=== PATIENT | female | born 1965 | race Two or more races ===

== ENCOUNTER 2016-10-01 01:04 | Day surgery (SDC) | payer OTHER ==
[~2016-10-01] VITALS: Ht 160 cm; Wt 111.1 kg
[2016-10-01] VITALS (11 sets, daily range): BP systolic 103–139; BP diastolic 60–81
[~2016-10-01 01:04] MED LIST: ACET1TAB34 PO; ALPR0.5T6 PO; ALPR1TAB6 PO; CHOL2000 PO; CIPR500T86 PO; DIAZ5TAB4 PO; FLAV100T PO; FURO-81 PO; HYDR-3014 PO; LACTATED RINGERS 1,000 ML IV SCH; LACTATED RINGERS 1,000 ML ONE; LEVAQUIN 100 ML IV ONE; MAGN400T7 PO; POTA20TA14 PO; TRAM50TA PO; TYLENOL NO 3
[2016-10-01] MEDS ORDERED: LACTATED RINGERS 1,000 ML ONE ×2 (05:01→08:00)
[2016-10-01] MEDS ORDERED: LEVAQUIN 100 ML IV ONE ×2 (05:02→07:00)
[2016-10-01 06:42] LABS: BASOPHIL # 0.1 10^3/uL (0.0-0.1); BASOPHIL % 0.5 % (0.0-0.2); EOSINOPHIL # 0.2 10^3/uL (0.0-0.2); EOSINOPHIL % 1.6 % (0.0-5.0); HEMATOCRIT 40.3 % (36.0-46.0); HEMOGLOBIN 12.7 g/dL (12.0-15.0); LYMPHOCYTES # 1.7 10^3/uL (1.0-4.8); LYMPHOCYTES % 18.2 % (24.0-44.0); MEAN CELL HGB 24.6 pg (26-34); MEAN CELL HGB CONCENTRATION 31.5 g/dL (33-37); MEAN CORP VOLUME 78.1 fL (78-100); MEAN PLATELET VOLUME 11.3 fL (7.8-11.0); MONOCYTES # 0.6 10^3/uL (0.3-0.8); MONOCYTES % 5.9 % (5.0-12.0); NEUTROPHILS % 73.5 % (41.0-85.0); RED BLOOD CELL 5.16 10^6/uL (4.00-5.20); RED CELL DISTRIBUTION WIDTH 15.4 % (11.5-14.5); WHITE BLOOD CELL 9.5 10^3/uL (4.5-11.0)
[2016-10-01 06:54] LABS: ANION GAP 16.7; CALCIUM 9.1 mg/dL (8.4-10.5); CARBON DIOXIDE 22.3 mmol/L (20.0-32); CREATININE SERUM 1.26 mg/dL (0.59-1.40); GLUCOSE 105 mg/dL (70-110)
[2016-10-01 06:58] LABS: PARTIAL THROMBOPLASTIN TIME 26.4 SEC (24.67-30.72); PROTHROMBIN PROTIME 10.5 SEC (9.8-11.9)
[2016-10-01] MEDS ORDERED: LACTATED RINGERS 1,000 ML IV SCH ×2 (07:00→08:30)
[2016-10-01] MEDS ORDERED: SODIUM CHLORIDE IR ONE ×2 (07:24)
[2016-10-01] MEDS ORDERED: CIPR500T86 PO (08:25)
[2016-10-01] MEDS ORDERED: NORCO 7.5MG PO PRN (08:30)
[2016-10-01] MEDS ORDERED: SUBLIMAZE ONE (08:33)
[2016-10-01] MEDS ORDERED: SUBLIMAZE IV STA (08:35)
[2016-10-01] MEDS ORDERED: XYLOCAINE ONE (08:47)
[2016-10-01] MEDS ORDERED: DIPRIVAN IV ONE (08:48)
[2016-10-01] MEDS ORDERED: TORADOL ONE (08:48)
[2016-10-01] MEDS ORDERED: LACTATED RINGERS 1,000 ML IV ONE (09:00)
--- NOTE | 2016-10-01 10:01 | OPH ---
DATE OF SURGERY: 10/01/2016 PREOPERATIVE DIAGNOSIS: Right hydronephrosis secondary to a severe distal ____ stricture. FINAL DIAGNOSIS: Right hydronephrosis secondary to a severe distal ____ stricture. PROCEDURES: Cystoscopy, removal of right ureteral stent and replacement with insertion of a new 6-Belizean indwelling ureteral stent. DESCRIPTION OF PROCEDURE: The patient was brought to the cystoscopy room and was put in supine position on the cystoscopy table. After the patient was given a satisfactory and adequate general anesthesia, the patient was placed in the lithotomy position. The genitalia was then prepped and draped aseptically in the usual manner. First, a 22-Belizean cystoscope was inserted per urethra up to the bladder. With the use of the right angle lens, the bladder was visualized and the bladder was congested and the right ____ stent was easily noted, coming from the right ureteral orifice. This was removed and then a guidewire was inserted through it and a new 6-Belizean indwelling ureteral stent was then reinserted through the guidewire up to the right renal pelvis. After this was done, the guidewire was removed and the tip of the ureteral stent was also noted in the bladder area. Bladder again was emptied with fluid. Instrument was removed. The patient was awakened, was transferred to the recovery room in stable condition. Aldo Alvares MD DR: TREMAINE/augie JOB# [id number]
--- NOTE | 2016-10-01 11:29 | DIREP ---
PROCEDURE:XRAY FLUOROSCOPY COMPARISON:None. INDICATIONS:CYSTO, STENT REMOVAL AND REINSERTION; 22.89 mGy; fluoroscopy time 48 seconds TECHNIQUE:Fluoroscopic assistance right ureteral stent removal and reinsertion. FINDINGS:4 images to take right ureteral stent. No contrast. CONCLUSION:Fluoroscopic assistance right ureteral stent manipulation. Dictated by: Jaxon Mccabe M.D. on 10/01/2016 at 11:18 AM
== END 2016-10-01 09:36 | disposition home or self-care (01) ==
LOC: SURG 01:04
PROVIDERS: ATTEND Urology
DX: N13.1 Hydronephrosis with ureteral stricture, not elsewhere classified (principal); Z46.6 Encounter for fitting and adjustment of urinary device; E66.01 Morbid (severe) obesity due to excess calories; Z68.41 Body mass index [BMI] 40.0-44.9, adult; M19.90 Unspecified osteoarthritis, unspecified site; F32.9 Major depressive disorder, single episode, unspecified; Z85.41 Personal history of malignant neoplasm of cervix uteri
CPT/HCPCS: 36415; 52332; 76000; 80048; 85025; 85610; 85730; J1885; J1956; J3010; J3490; J7030; J7120 ×2; C1769; C2617

== ENCOUNTER → 2017-02-11 | Day surgery (SDC) | payer OTHER ==
[2017-02-10 16:35] VITALS: BP 141/70
[2017-02-10 17:30] LABS: BASOPHIL % 0.6 % (0.0-0.2); EOSINOPHIL # 0.1 10^3/uL (0.0-0.2); EOSINOPHIL % 1.9 % (0.0-5.0); HEMOGLOBIN 11.6 g/dL (12.0-15.0); LYMPHOCYTES # 1.6 10^3/uL (1.0-4.8); LYMPHOCYTES % 23.4 % (24.0-44.0); MEAN CELL HGB 25.1 pg (26-34); MEAN CELL HGB CONCENTRATION 31.9 g/dL (33-37); MEAN CORP VOLUME 78.8 fL (78-100); MEAN PLATELET VOLUME 11.3 fL (7.8-11.0); MONOCYTES # 0.4 10^3/uL (0.3-0.8); MONOCYTES % 6.2 % (5.0-12.0); NEUTROPHIL # 4.6 10^3/uL (1.8-7.7); NEUTROPHILS % 67.5 % (41.0-85.0); RED CELL DISTRIBUTION WIDTH 15.9 % (11.5-14.5); WHITE BLOOD CELL 6.8 10^3/uL (4.5-11.0)
[~2017-02-11] VITALS: Ht 160 cm; Wt 113.9 kg
[2017-02-11] VITALS (11 sets, daily range): BP systolic 99–132; BP diastolic 65–87
[~2017-02-11] MED LIST changes: +DECADRON ONE; +DEMEROL IV PRN; +DILAUDID IV PRN; +DIPRIVAN IV ONE; +NEOSTIGMINE ONE; +NORCO 7.5MG PO PRN; +PHENERGAN IV PRN; +QUELICIN ONE; +SODIUM CHLORIDE IR ONE; +SUBLIMAZE IV PRN; +SUBLIMAZE ONE; +TORADOL ONE; +VERSED ONE; +XYLOCAINE ONE; +ZEMURON IV ONE; +ZOFRAN IV PRN; +ZOFRAN ONE
--- NOTE | 2017-02-11 09:17 | DIREP ---
PROCEDURE:XRAY FLUOROSCOPY COMPARISON:[facility], CR, XRAY FLUOROSCOPY, 10/01/2016, 06:05 AM. INDICATIONS:stent removal and insertion of new stents TECHNIQUE:Real time fluoroscopy of was utilized by the clinician. Fluoroscopy time: 74 seconds FINDINGS: Fluoroscopy was utilized to evaluate the abdomen. For spot fluoroscopic images were submitted. Fine detail is precluded due to fluoroscopic nature of the exam. There is a right ureteral stent present on all images Please refer to the intra-operative note for additional details. CONCLUSION:Please refer to the intraoperative note for details. Dictated by: Jada Cerrato M.D. on 02/11/2017 at 08:10 AM Read in [place]
--- NOTE | 2017-02-11 11:13 | OPH ---
DATE OF SURGERY: 02/11/2017 PREOPERATIVE DIAGNOSIS: Right hydronephrosis due to a distal ureteral stricture. FINAL DIAGNOSIS: Right hydronephrosis due to a distal ureteral stricture. PROCEDURES: Cystoscopy, removal of right ureteral stent with insertion of a new 7-South Sudanese double-J ureteral stent. DESCRIPTION OF PROCEDURE: The patient was brought to the cystoscopy room and was put in supine position on the cystoscopy table. After the patient was given a satisfactory and adequate endotracheal general anesthesia, the patient was placed in the lithotomy position. The genitalia was then prepped and draped aseptically in the usual manner. First, a 22-South Sudanese cystoscope was inserted per urethra up to the bladder. With the use of the right angle lens, the bladder was visualized. There was no tumor, no calculi, no ulcerations seen. The right ureteral stent was then removed and replaced with a Glidewire. After that, a double J 7-South Sudanese ureteral stent was reinserted through the Glidewire all the way up to the kidney. After this was done, the Glidewire was removed. The bladder was emptied of fluid and the procedure was terminated. Instrument was then removed. The patient was then awakened, was transferred to the recovery room in stable condition. Aldo Alvares MD DR: TREMAINE/augie JOB# [id number]
== END | disposition home or self-care (01) | DRG 694 ==
LOC: SDC 00:35
PROVIDERS: ATTEND Urology
DX: N13.1 Hydronephrosis with ureteral stricture, not elsewhere classified (principal); K21.9 Gastro-esophageal reflux disease without esophagitis; F32.9 Major depressive disorder, single episode, unspecified; M19.90 Unspecified osteoarthritis, unspecified site; E66.01 Morbid (severe) obesity due to excess calories; Z98.890 Other specified postprocedural states; Z90.49 Acquired absence of other specified parts of digestive tract; Z85.41 Personal history of malignant neoplasm of cervix uteri; Z68.41 Body mass index [BMI] 40.0-44.9, adult
CPT/HCPCS: 36415; 52352; 76000; 82565; 84520; 85025; J0330; J1100; J1885; J1956; J2250; J2405; J3010; J3490 ×3; J7030 ×2; J7120; C1769; C2617; J2710

== ENCOUNTER 2017-03-18 00:12 | Day surgery (SDC) | payer OTHER ==
[~2017-03-18] VITALS: Ht 160 cm; Wt 113.9 kg
[2017-03-18] VITALS (11 sets, daily range): BP systolic 110–169; BP diastolic 69–92
[~2017-03-18 00:12] MED LIST changes: -DECADRON ONE; -DEMEROL IV PRN; -DILAUDID IV PRN; -DIPRIVAN IV ONE; -LACTATED RINGERS 1,000 ML IV SCH; -LACTATED RINGERS 1,000 ML ONE; -LEVAQUIN 100 ML IV ONE; -NEOSTIGMINE ONE; -NORCO 7.5MG PO PRN; -PHENERGAN IV PRN; -QUELICIN ONE; -SODIUM CHLORIDE IR ONE; -SUBLIMAZE IV PRN; -SUBLIMAZE ONE; -TORADOL ONE; -VERSED ONE; -XYLOCAINE ONE; -ZEMURON IV ONE; -ZOFRAN IV PRN; -ZOFRAN ONE
[2017-03-18] MEDS ORDERED: LEVAQUIN 100 ML IV ONE ×2 (05:31→06:00)
[2017-03-18] MEDS ORDERED: LACTATED RINGERS 1,000 ML ONE (05:31)
[2017-03-18] MEDS ORDERED: LACTATED RINGERS 1,000 ML IV SCH ×3 (06:00→10:00)
[2017-03-18] MEDS ORDERED: SODIUM CHLORIDE IR ONE ×2 (07:21)
[2017-03-18 08:41] LABS: BASOPHIL % 0.4 % (0.0-0.2); EOSINOPHIL # 0.2 10^3/uL (0.0-0.2); HEMOGLOBIN 12.4 g/dL (12.0-15.0); LYMPHOCYTES # 1.7 10^3/uL (1.0-4.8); LYMPHOCYTES % 20.2 % (24.0-44.0); MEAN CELL HGB CONCENTRATION 30.4 g/dL (33-37); MEAN CORP VOLUME 78.9 fL (78-100); MEAN PLATELET VOLUME 11.3 fL (7.8-11.0); MONOCYTES # 0.5 10^3/uL (0.3-0.8); NEUTROPHIL # 6.1 10^3/uL (1.8-7.7); NEUTROPHILS % 71.2 % (41.0-85.0); RED CELL DISTRIBUTION WIDTH 15.5 % (11.5-14.5); WHITE BLOOD CELL 8.6 10^3/uL (4.5-11.0)
[2017-03-18] MEDS ORDERED: XYLOCAINE ONE (08:41)
[2017-03-18] MEDS ORDERED: DECADRON ONE (08:41)
[2017-03-18] MEDS ORDERED: TORADOL ONE (08:42)
[2017-03-18] MEDS ORDERED: ZOFRAN ONE (08:42)
[2017-03-18] MEDS ORDERED: DIPRIVAN IV ONE (08:42)
[2017-03-18] MEDS ORDERED: SUBLIMAZE ONE (08:42)
[2017-03-18 09:04] LABS: CALCIUM 9.4 mg/dL (8.4-10.5); CARBON DIOXIDE 27.1 mmol/L (20.0-32)
[2017-03-18] MEDS ORDERED: CIPR500T86 PO (09:56)
[2017-03-18] MEDS ORDERED: SUBLIMAZE IV PRN (10:00)
[2017-03-18] MEDS ORDERED: ZOFRAN IV PRN (10:00)
[2017-03-18] MEDS ORDERED: NORCO 7.5MG PO PRN (10:00)
--- NOTE | 2017-03-18 10:17 | OPH ---
DATE OF SURGERY: 03/18/2017 PREOPERATIVE DIAGNOSES: Marked right hydroureteronephrosis, stricture of the right distal ureter. FINAL DIAGNOSES: Marked right hydroureteronephrosis, stricture of the right distal ureter. PROCEDURES: Cystoscopy, removal of right ureteral stent, right ureteral distal dilatation ____ retrograde with ureteroscopy and reinsertion of double-J ureteral stent. DESCRIPTION OF PROCEDURE: The patient was brought to the cystoscopy room and was put in supine position on the cystoscopy table. After the patient was given a satisfactory and adequate general anesthesia, the patient was placed in the lithotomy position. The genitalia was then prepped and draped aseptically in the usual manner. First, a 22-Spanish ____ cystoscope was inserted per urethra up to the bladder. With the use of the right angle lens, the bladder was visualized. There was some congestion noted. No tumor, no calculi seen. The right ureteral stent was then removed and replaced with a Glidewire. After this was done, the cystoscope was removed and through the Glidewire, the ureteral dilatation was then done in the distal ureter then a retrograde, was ____, which showed severe marked right hydroureter with nephrosis. Right ureteroscopy was also performed, which revealed a severe stricture in the right distal ureter. After this was done, a double-J ureteral ____ was then reinserted all the way up to the right kidney. After this was done, the Glidewire was removed. The bladder again was emptied with fluid by reinserting the cystoscope. KUB was done and the stent is in perfect place in the right kidney, up to the way to the bladder. The procedure was terminated and the instrument was removed. The patient was then awakened and was transferred to the recovery room in stable condition. Aldo Alvares MD DR: TREMAINE/augie JOB# [id number]
[2017-03-18] MEDS ORDERED: NORCO 7.5MG PO ONE (10:32)
--- NOTE | 2017-03-18 13:52 | DIREP ---
PROCEDURE:XRAY UROGRAPHY RETROGRADE COMPARISON:[facility], CR, XRAY FLUOROSCOPY, 02/11/2017, 06:03 AM. INDICATIONS:178.5 SECS FLURO RETROGRADE PERFORMED TECHNIQUE:Multiple intraoperative views of the abdomen were performed during a right retrograde pyelogram. Fluoroscopy time performed was 178.5 seconds. FINDINGS:Multiple intraoperative views demonstrate interval placement of a right double pigtail ureteral stent in good position. Contrast is seen in the right renal collecting system and proximal right ureter which are dilated with questionable filling defect and or stricture of the proximal right ureter. CONCLUSION:Interval replacement of a right double pigtail ureteral stent in good position. There is right-sided hydronephrosis and dilatation of the proximal right ureter with the mid and distal right ureter not visualized. There is a questionable stricture or filling defect of the proximal right ureter. Dictated by: Otto Lama M.D. on 03/18/2017 at 01:47 PM
== END 2017-03-18 11:16 | disposition home or self-care (01) | DRG 694 ==
LOC: SURG 00:12
PROVIDERS: ATTEND Urology
DX: N13.1 Hydronephrosis with ureteral stricture, not elsewhere classified (principal); K21.9 Gastro-esophageal reflux disease without esophagitis; E66.01 Morbid (severe) obesity due to excess calories; F32.9 Major depressive disorder, single episode, unspecified; M19.90 Unspecified osteoarthritis, unspecified site; Z90.49 Acquired absence of other specified parts of digestive tract; Z68.41 Body mass index [BMI] 40.0-44.9, adult; Z85.41 Personal history of malignant neoplasm of cervix uteri; Z79.899 Other long term (current) drug therapy; Z98.890 Other specified postprocedural states; Z88.8 Allergy status to other drugs, medicaments and biological substances
CPT/HCPCS: 36415; 52332; 52344; 74420; 76000; 80048; 85025; 85610; J1100; J1885; J1956; J2405; J3010; J3490 ×2; J7030 ×2; J7120; Q9967; C1769; C1894; C2617

== ENCOUNTER → 2017-07-10 | Day surgery (SDC) | payer OTHER ==
[2017-07-08 16:45] LABS: BILIRUBIN,URINE NEGATIVE (NEGATIVE); UROBILINOGEN,URINE NORMAL (NEGATIVE)
[2017-07-08 16:47] LABS: BASOPHIL % 0.3 % (0.0-0.2); EOSINOPHIL # 0.1 10^3/uL (0.0-0.2); EOSINOPHIL % 2.3 % (0.0-5.0); HEMOGLOBIN 11.5 g/dL (12.0-15.0); LYMPHOCYTES # 1.7 10^3/uL (1.0-4.8); LYMPHOCYTES % 28.4 % (24.0-44.0); MEAN CELL HGB 23.5 pg (26-34); MEAN CORP VOLUME 78.2 fL (78-100); MEAN PLATELET VOLUME 11.3 fL (7.8-11.0); MONOCYTES # 0.5 10^3/uL (0.3-0.8); MONOCYTES % 8.1 % (5.0-12.0); NEUTROPHIL # 3.6 10^3/uL (1.8-7.7); NEUTROPHILS % 60.7 % (41.0-85.0); RED CELL DISTRIBUTION WIDTH 15.4 % (11.5-14.5)
[2017-07-08 17:10] LABS: APPEARANCE,URINE HAZY (CLEAR); UA COLOR YELLOW (YELLOW)
[2017-07-08 17:15] LABS: CALCIUM 8.5 mg/dL (8.4-10.5); CARBON DIOXIDE 23.6 mmol/L (20.0-32)
[2017-07-10] VITALS (13 sets, daily range): BP systolic 98–130; BP diastolic 52–88
[~2017-07-10] VITALS: Ht 160 cm; Wt 113.9 kg
[~2017-07-10] MED LIST changes: +ACET-685 PO; +DECADRON ONE; +DEMEROL IV PRN; +DILAUDID IV PRN; +DIPRIVAN IV ONE; -HYDR-3014 PO; +HYDR-3105 PO; +LACTATED RINGERS 1,000 ML IV SCH; +NORCO 7.5MG PO PRN; +NS 3000ML IRR IR ONE; +PHENERGAN IV PRN; +SODIUM CHLORIDE IR ONE; +TORADOL ONE; +VERSED ONE; +ZOFRAN ONE
[2017-07-10] MEDS: LACTATED RINGERS 1,000 ML IV SCH (07:46)
--- NOTE | 2017-07-10 08:04 | PCM.EKG ---
[facility] Test Date: 2017-07-10 Test Time: 08:01:29 Pat Name: KATHY FARNSWORTH Department: Room: Gender: F Fruit Sorter: [facility] : 1965 Requested By: KOFFI SAENZ Order Number: [id number] Reading MD: Measurements Intervals [place] Rate: 86 P: 70 KS: 152 QRS: 17 QRSD: 70 T: 34 QT: 384 QTc: 459 Interpretive Statements Normal sinus rhythm Low voltage QRS ST abnormality, possible digitalis effect Abnormal ECG No previous ECG available for comparison Please click the below link to view image of tracing.
[2017-07-10] MEDS: LEVAQUIN 100 ML IV ONE (08:26)
[2017-07-10] MEDS: SUBLIMAZE IV PRN (09:08)
--- NOTE | 2017-07-10 09:14 | OPH ---
DATE OF SURGERY: 07/10/2017 PREOPERATIVE DIAGNOSES: Right hydronephrosis with severe ureteral stricture. FINAL DIAGNOSES: Right hydronephrosis with severe ureteral stricture. PROCEDURES: Cystoscopy, removal of right ureteral stent, and reinsertion of a new 6-Palestinian double-J ureteral stent. DESCRIPTION OF PROCEDURE: The patient was brought to the cystoscopy room and was put in the supine position on the cystoscopy table. After the patient was given satisfactory and adequate general anesthesia, the patient was placed in the lithotomy position. The genitalia was then prepped and draped aseptically in the usual manner. A 22-Palestinian cystoscope was inserted per the urethra up to the bladder. With the use of a right angle lens, the bladder was visualized. There was some congestion noted in the bladder wall. No tumor, no calculi seen. There was a presence of a stent in the right ureteral orifice. This right ureteral stent was then removed. Then a guidewire was inserted through the right ureteral orifice and a double-J 24 6-Palestinian ureteral stent was then reinserted through the guidewire up from the right orifice all the way to the renal pelvis. After the position was confirmed by fluoroscopy, the guidewire was then removed, the bladder emptied off fluid, instruments removed, and the patient was then awakened and transferred to the recovery room in a stable condition. Aldo Alvares MD DR: TREMAINE/augie JOB# [id number]
--- NOTE | 2017-07-10 09:21 | DIREP ---
PROCEDURE:XRAY FLUOROSCOPY COMPARISON:[facility], , XRAY FLUOROSCOPY, 02/11/2017, 06:03 AM. INDICATIONS:CYST, REMOVAL OF STENT AND REINSERTION FINDINGS: Intraoperative fluoroscopy was provided for the ordering clinician by the Radiology Department for revision of the right double-J ureteral stent. 5 images submitted for interpretation. On image demonstrates adequate placement of the double-J ureteral stent. 32.9 seconds fluoroscopy time utilized. CONCLUSION: Intraoperative fluoroscopy provided for the ordering clinician by the Radiology Department as detailed above. Dictated by: Elpidio Langford DO on 07/10/2017 at 09:19 AM
== END | disposition home or self-care (01) | DRG 694 ==
LOC: SURG 00:06
PROVIDERS: ATTEND Urology
DX: N13.1 Hydronephrosis with ureteral stricture, not elsewhere classified (principal); E66.01 Morbid (severe) obesity due to excess calories; K21.9 Gastro-esophageal reflux disease without esophagitis; F32.9 Major depressive disorder, single episode, unspecified; M19.90 Unspecified osteoarthritis, unspecified site; Z68.41 Body mass index [BMI] 40.0-44.9, adult; Z85.41 Personal history of malignant neoplasm of cervix uteri; Z98.890 Other specified postprocedural states; Z79.899 Other long term (current) drug therapy
CPT/HCPCS: 36415; 52332; 76000; 80053; 81000; 85025; 87086; 93005; J1100; J1885; J2250; J2405; J3490; J7030 ×2; C1769; C2617

== ENCOUNTER 2017-10-09 01:50 | Day surgery (SDC) | payer OTHER ==
[2017-10-06 16:34] LABS: BASOPHIL % 0.4 % (0.0-0.2); EOSINOPHIL # 0.1 10^3/uL (0.0-0.2); HEMOGLOBIN 11.8 g/dL (12.0-15.0); LYMPHOCYTES # 1.8 10^3/uL (1.0-4.8); LYMPHOCYTES % 25.3 % (24.0-44.0); MEAN CORP VOLUME 77.4 fL (78-100); MEAN PLATELET VOLUME 11.1 fL (7.8-11.0); MONOCYTES # 0.5 10^3/uL (0.3-0.8); MONOCYTES % 7.1 % (5.0-12.0); NEUTROPHIL # 4.7 10^3/uL (1.8-7.7); NEUTROPHILS % 65.1 % (41.0-85.0); WHITE BLOOD CELL 7.2 10^3/uL (4.5-11.0)
[2017-10-06 16:48] LABS: CARBON DIOXIDE 24.1 mmol/L (20.0-32)
[2017-10-09] VITALS (7 sets, daily range): BP systolic 110–166; BP diastolic 67–82
[~2017-10-09] VITALS: Ht 160 cm; Wt 114.1 kg
[~2017-10-09 01:50] MED LIST changes: -DECADRON ONE; -DEMEROL IV PRN; -DILAUDID IV PRN; -DIPRIVAN IV ONE; -LACTATED RINGERS 1,000 ML IV SCH; -NORCO 7.5MG PO PRN; -NS 3000ML IRR IR ONE; -PHENERGAN IV PRN; -SODIUM CHLORIDE IR ONE; -TORADOL ONE; -VERSED ONE; -ZOFRAN ONE
[2017-10-09] MEDS ORDERED: LACTATED RINGERS 1,000 ML ONE (06:14)
[2017-10-09] MEDS ORDERED: LEVAQUIN 100 ML IV ONE (06:16)
[2017-10-09] MEDS ORDERED: LACTATED RINGERS 1,000 ML IV SCH ×2 (07:00→12:00)
[2017-10-09] MEDS ORDERED: SODIUM CHLORIDE IR ONE (10:36)
[2017-10-09] MEDS ORDERED: NS 3000ML IRR IR ONE (10:36)
[2017-10-09] MEDS ORDERED: DIPRIVAN IV ONE (11:08)
[2017-10-09] MEDS ORDERED: QUELICIN ONE (11:08)
[2017-10-09] MEDS ORDERED: SUBLIMAZE ONE ×2 (11:08→11:52)
[2017-10-09] MEDS ORDERED: LIDOCAINE 2% VIAL ONE (11:08)
[2017-10-09] MEDS ORDERED: NS 100ML 100 ML IV ONE (11:08)
[2017-10-09] MEDS ORDERED: CIPR500T86 PO (11:50)
[2017-10-09] MEDS ORDERED: SUBLIMAZE IV STA (12:00)
[2017-10-09] MEDS ORDERED: NORCO 7.5MG PO PRN (12:00)
--- NOTE | 2017-10-09 12:16 | OPH ---
DATE OF SURGERY: 10/09/2017 PREOPERATIVE DIAGNOSIS: Severe stricture of distal right ureter with hydroureteronephrosis. FINAL DIAGNOSIS: Severe stricture of distal right ureter with hydroureteronephrosis. PROCEDURES: Cystoscopy, removal of right ureteral stent, right distal ureteral dilatation with right ureteroscopy and reinsertion of a double-J right ureteral stent. DESCRIPTION OF PROCEDURE: The patient was brought to the cystoscopy room and was put in supine position on the cystoscopy table. After the patient was given general anesthesia, the patient was then placed in the lithotomy position. First, a 23-Ivorian cystoscope was inserted per urethra up to the bladder. With the use of the right angle lens, the bladder was visualized. There was no tumor, no calculi, no ulcerations seen and the right ureteral stent was then removed and replaced with a guidewire. After that, the cystoscope was removed and through the guidewire, the ureteral dilatation was then performed and after that a 7-Ivorian semirigid ureteroscope was inserted from the right orifice and it was tight and was able to manipulate it to dilate the right lower ureter from the severe stricture, no stone or other abnormalities noted. After that, the ureteroscope was then removed and a 6-Ivorian double J right ureteral stent was reinserted through the Glidewire from the right orifice all the way to the right kidney. After the fluoroscopy, after the position was in a good location, the guidewire was removed and then the cystoscope was reinserted to the bladder and the bladder was emptied with fluid. Procedure was terminated. Instrument was removed. The patient was then awakened, was transferred to the recovery room in stable condition. Aldo Alvares MD DR: TREMAINE/augie JOB# [id number]
[2017-10-09] MEDS ORDERED: NORCO 7.5MG PO ONE (12:23)
--- NOTE | 2017-10-11 07:48 | DIREP ---
PROCEDURE: FLUOROSCOPY LESS THAN 1 HOUR COMPARISON: [facility], CR, AMAURIAY FLUOROSCOPY, 07/10/2017, 07:42 AM. INDICATIONS: STENT REMOVAL WITH REINSERTION TECHNIQUE: Fluoroscopy was utilized intraoperatively. 77.8 seconds fluoroscopy time was used. Seven images were provided. FINDINGS: The initial image demonstrates a presumed right-sided ureteral stent in place. The images are not marked right or left. Subsequent images demonstrate guidewire placement with apparent ureteral stent exchange. A presumed right ureteral stent is present on the final images. CONCLUSION: 1. Images obtained during urologic intervention with apparent right ureteral stent exchange as discussed above. Please refer to the separate operative report for further details. Dictated by: Reece Joiner M.D. On 10/10/2017 at 04:55 PM [facility]
== END 2017-10-09 13:00 | disposition home or self-care (01) | DRG 694 ==
LOC: SURG 01:50
PROVIDERS: ATTEND Urology
DX: N13.1 Hydronephrosis with ureteral stricture, not elsewhere classified (principal); K21.9 Gastro-esophageal reflux disease without esophagitis; E66.01 Morbid (severe) obesity due to excess calories; F32.9 Major depressive disorder, single episode, unspecified; Z98.890 Other specified postprocedural states; Z88.8 Allergy status to other drugs, medicaments and biological substances; Z79.899 Other long term (current) drug therapy; Z88.1 Allergy status to other antibiotic agents; Z68.41 Body mass index [BMI] 40.0-44.9, adult; Z90.710 Acquired absence of both cervix and uterus
CPT/HCPCS: 36415; 52332; 52344; 76000; 80051; 82565; 84520; 85025; 85610; 85730; J0330; J1956; J2001; J3010 ×2; J3490; J7030 ×2; J7050; J7120; C1769; C1894; C2617

== ENCOUNTER 2018-01-16 02:48 | Day surgery (SDC) | payer OTHER ==
[2018-01-12 16:28] LABS: BASOPHIL # 0.1 10^3/uL (0.0-0.1); BASOPHIL % 0.8 % (0.0-0.2); EOSINOPHIL # 0.1 10^3/uL (0.0-0.2); EOSINOPHIL % 1.9 % (0.0-5.0); HEMOGLOBIN 11.5 g/dL (12.0-15.0); LYMPHOCYTES % 31.7 % (24.0-44.0); MEAN CELL HGB 24.3 pg (26-34); MEAN CELL HGB CONCENTRATION 31.6 g/dL (33-37); MEAN PLATELET VOLUME 11.1 fL (7.8-11.0); MONOCYTES # 0.5 10^3/uL (0.3-0.8); MONOCYTES % 7.4 % (5.0-12.0); NEUTROPHIL # 3.6 10^3/uL (1.8-7.7); NEUTROPHILS % 57.9 % (41.0-85.0); WHITE BLOOD CELL 6.3 10^3/uL (4.5-11.0)
[2018-01-12 16:43] LABS: CARBON DIOXIDE 24.7 mmol/L (20.0-32)
[~2018-01-16] VITALS: Ht 160 cm; Wt 113.9 kg
[2018-01-16] VITALS (8 sets, daily range): BP systolic 113–155; BP diastolic 65–96
[~2018-01-16 02:48] MED LIST changes: +LACTATED RINGERS 1,000 ML ONE; +SENSORCAINE-MPF 0.25% VIAL ONE; +SODIUM CHLORIDE IR ONE; +SODIUM CHLORIDE IRR BAG 2,000 ML ONE
[2018-01-16] MEDS ORDERED: LACTATED RINGERS 1,000 ML ONE (05:18)
[2018-01-16] MEDS ORDERED: LEVAQUIN 100 ML IV ONE (05:18)
[2018-01-16] MEDS ORDERED: TORADOL ONE (06:39)
[2018-01-16] MEDS ORDERED: VERSED ONE (06:39)
[2018-01-16] MEDS ORDERED: DECADRON ONE (06:39)
[2018-01-16] MEDS ORDERED: ZOFRAN ONE (06:39)
[2018-01-16] MEDS ORDERED: DIPRIVAN IV ONE (06:40)
[2018-01-16] MEDS ORDERED: LIDOCAINE 2% VIAL ONE (06:40)
[2018-01-16] MEDS ORDERED: SUBLIMAZE ONE (06:40)
[2018-01-16] MEDS ORDERED: DILAUDID ONE (07:36)
[2018-01-16] MEDS ORDERED: HYDR-3105 PO (08:15)
[2018-01-16] MEDS ORDERED: LACTATED RINGERS 1,000 ML IV SCH ×2 (09:00→10:00)
[2018-01-16] MEDS ORDERED: SODIUM CHLORIDE IR ONE (09:14)
[2018-01-16] MEDS ORDERED: NS 3000ML IRR IR ONE (09:14)
[2018-01-16] MEDS ORDERED: NORCO 7.5MG PO PRN (10:00)
[2018-01-16] MEDS ORDERED: SUBLIMAZE IV PRN (10:00)
[2018-01-16] MEDS ORDERED: ZOFRAN IV PRN (10:00)
--- NOTE | 2018-01-16 10:19 | DIREP ---
PROCEDURE:XRAY FLUOROSCOPY COMPARISON:None. INDICATIONS:STENT REMOVAL AND INSERTION OF NEW STENT, 5 images, 20.14 mGy, 39.8 seconds fluoro TECHNIQUE:4 fluoroscopic images are submitted from the OR. FINDINGS:All images demonstrated a stent catheter to be in place from the right renal pelvis to the bladder. CONCLUSION:Right ureteral stent catheter in place. Dictated by: Brian Díaz M.D. on 01/16/2018 at 10:16 AM
--- NOTE | 2018-01-16 14:23 | OPH ---
DATE OF SURGERY: 01/16/2018 PREOPERATIVE DIAGNOSES: Right hydronephrosis, distal ureteral stricture. FINAL DIAGNOSES: Right hydronephrosis, distal ureteral stricture. PROCEDURES: Cystoscopy, removal of right ureteral stent with reinsertion of a new double-J ureteral stent. DESCRIPTION OF PROCEDURE: The patient was brought to the cystoscopy room, was put in supine position on the cystoscopy table. After the patient was given a satisfactory and adequate LMA general anesthesia, the patient was placed in the lithotomy position. The genitalia was then prepped and draped aseptically in the usual manner. First, a 23-Maltese cystoscope was inserted per urethra up to the bladder. With the use of the right angle lens, the bladder was visualized. The bladder was congested. No tumor, no calculi seen. There is a stent in the right ureteral orifice, which was removed and replaced with a Glidewire. After that, the 6-Maltese long-term double-J ureteral stent was reinserted to the wire from the right ureteral orifice all the way to the right renal pelvis. After this was done, the Glidewire was removed. Then, the bladder was emptied with fluid with the cystoscope, after that procedure was terminated. Instrument was removed. The patient was then awakened, was transferred to the recovery room in stable condition. Aldo Alvares MD DR: TREMAINE/augie JOB# [id number]
== END 2018-01-16 11:15 | disposition home or self-care (01) ==
LOC: SURG 02:48 → SDC 11:15
PROVIDERS: ATTEND Urology
DX: N13.1 Hydronephrosis with ureteral stricture, not elsewhere classified (principal); K21.9 Gastro-esophageal reflux disease without esophagitis; E66.01 Morbid (severe) obesity due to excess calories; Z68.41 Body mass index [BMI] 40.0-44.9, adult; Z98.890 Other specified postprocedural states; Z88.1 Allergy status to other antibiotic agents; Z88.8 Allergy status to other drugs, medicaments and biological substances; Z90.710 Acquired absence of both cervix and uterus; Z79.899 Other long term (current) drug therapy; F32.9 Major depressive disorder, single episode, unspecified; Z83.3 Family history of diabetes mellitus; Z82.49 Family history of ischemic heart disease and other diseases of the circulatory system; Z84.1 Family history of disorders of kidney and ureter; Z82.3 Family history of stroke; Z82.5 Family history of asthma and other chronic lower respiratory diseases; Z91.018 Allergy to other foods; Z85.41 Personal history of malignant neoplasm of cervix uteri; Z91.041 Radiographic dye allergy status
CPT/HCPCS: 36415; 52332; 76000; 80051; 82565; 84520; 85025; J1100; J1885; J1956; J2001; J2250; J2405; J3010; J3490 ×2; J7030 ×4; J7120 ×2; C2617